=== PATIENT | female | born 1970 | race Caucasian/White ===

== ENCOUNTER 2018-05-10 18:54 | Emergency (ER) | payer BC ==
[2018-05-10] MEDS ORDERED: NS 1,000 ML IV ONE (19:17)
[2018-05-10] MEDS ORDERED: ONDANSETRON 4 MG/2 ML VIAL IVP ONE (19:17)
--- NOTE | 2018-05-10 19:20 | EDPHY ---
H & P Stated Complaint: Sudden sharp RLQ pain x2H, N/V s bleeding, denies constipation. - Personal History LMP (Females 10-55): Now Current Tetanus/Diphtheria Vaccine: Unsure - Medical/Surgical History Hx Asthma: No Hx Chronic Respiratory Disease: No Hx Diabetes: No Hx Cardiac Disease: No Hx Renal Disease: No Hx Cirrhosis: No Hx Alcoholism: No Hx HIV/AIDS: No Hx Splenectomy or Spleen Trauma: No Other PMH: sleep apnea, - Social History Smoking Status: Never smoked Alcohol Use: Sober Drug Use: None Time Seen by Provider: 05/10/18 19:06 HPI/ROS: CHIEF COMPLAINT: Abdominal pain HISTORY OF PRESENT ILLNESS: 47-year-old female presents with abdominal pain. Onset of periumbilical abdominal pain 2 hr ago. The pain waxes and wanes and is associated with nausea and vomiting. Currently menstruating, heavier period than usual. The pain is not localized to one side. No fever or diarrhea. No prior similar symptoms. REVIEW OF SYSTEMS: complete 10 point ROS reviewed and is negative except for the noted elements in the HPI (Ramila Mcclain) - Social History Additional Social History: (Ramila Mcclain) - Physical Exam Exam: General Appearance: Alert, pleasant Eyes: Pupils equal and round, no conjunctival pallor ENT, Mouth: Mucous membranes moist Neck: Normal inspection Respiratory: Lungs are clear to auscultation Cardiovascular: Regular rate and rhythm Gastrointestinal: Abdomen is soft, right lower quadrant tenderness, no peritoneal signs Back: No CVA tenderness Neurological: A&O, nonfocal exam Skin: Warm and dry, no rash Extremities: Nontender, no pedal edema Psychiatric: Mood and affect normal (Ramila Mcclain) Constitutional: Initial Vital Signs Temperature (C) 36.4 C 05/10/18 19:01 Heart Rate 71 05/10/18 19:01 Respiratory Rate 18 05/10/18 19:01 Blood Pressure 143/76 H 05/10/18 19:01 O2 Sat (%) 93 05/10/18 19:01 O2 Delivery Mode Room Air O2 (L/minute) 2 Allergies/Adverse Reactions: No Known Allergies Allergy (Verified 05/10/18 19:00) Home Medications: Medication Instructions Recorded Ondansetron Odt [Zofran Odt 4 mg 4 mg PO Q4PRN PRN #10 tab 05/10/18 (*)] Medical Decision Making ED Course/Re-evaluation: I took over care of this patient at 8:00 p.m.. The patient is here for right lower quadrant abdominal pain and vomiting. CT scan of abdomen and pelvis contrast enhanced is pending as well as blood work and urinalysis. CT scan abdomen and pelvis with IV contrast: The appendix is well visualized and is normal. There is some mild thickening of the gallbladder wall but without any associated inflammatory changes. No gallstones are seen. Results discussed with staff radiologist Dr. Quiles. I have ordered liver function testing for additional evaluation. 8:15 p.m., the patient was re-evaluated. She is resting comfortably at this time, repeat abdominal exam she is soft, nontender on palpation at this time. Specifically she does not have any right upper quadrant tenderness on palpation and no Knight sign. Results of her CT scan discussed with her. We are going to get her up to the bathroom to provide us with a urine sample. Blood work is currently pending. 9:00 p.m., the patient was re-evaluated, resting comfortably at this time. I discussed the results of her blood work and urinalysis with her and her . Results of her CT scan was reviewed. She describes her pain as lower mid abdominal pain. She has not had any upper abdominal pain. She does not have any pain at this time. Repeat abdominal exam she is soft and nontender throughout on palpation. She feels comfortable going home at this time and I feel she is safe for discharge. She will be prescribed Zofran for nausea and given a take-home pack of this medication. Follow-up and return to emergency department precautions reviewed with her. All of her questions were answered. She was discharged from the emergency department in good condition with her who is driving. (Shade Rodriguez) This patient presents with right lower quadrant tenderness and vomiting. Declines pain medication. IV normal saline 1 L and Zofran [address] scan of the abdomen pelvis ordered to evaluate for possible appendicitis. Toradol 30 mg IV and fentanyl 50 mcg IV given for pain control. The patient was signed over to Dr. Rodriguez at shift change. (Ramila Mcclain) Differential Diagnosis: Differential diagnosis includes though it is not limited to appendicitis, cholecystitis, diverticulitis, pyelonephritis, bowel perforation, small bowel obstruction. (Ramila Mcclain) - Data Points Laboratory Results: Laboratory Results 05/10/18 19:21 05/10/18 20:05 Medications Given: Discontinued Medications Fentanyl (Sublimaze) 50 mcg IVP EDNOW ONE Stop: 05/10/18 19:45 Last Admin: 05/10/18 19:54 Dose: 50 mcg Sodium Chloride (Ns) 1,000 mls @ 0 mls/hr IV EDNOW ONE; Wide Open PRN Reason: Protocol Stop: 05/10/18 19:18 Last Admin: 05/10/18 19:35 Dose: 1,000 mls Ketorolac Tromethamine (Toradol) 30 mg IVP EDNOW ONE Stop: 05/10/18 19:27 Last Admin: 05/10/18 19:35 Dose: 30 mg Ondansetron HCl (Zofran) 4 mg IVP EDNOW ONE Stop: 05/10/18 19:18 Last Admin: 05/10/18 19:35 Dose: 4 mg Ondansetron HCl (Zofran Odt 4 Mg Prepack#2) 1 btl TAKEHOME EDNOW ONE Stop: 05/10/18 21:07 Last Admin: 05/10/18 21:14 Dose: 1 btl Ondansetron HCl (Zofran Odt 4 Mg Prepack#2) 1 btl TAKEHOME EDNOW ONE Stop: 05/10/18 21:23 Last Admin: 05/10/18 21:23 Dose: 1 btl Point of Care Test Results: Chemistry 05/10/18 19:29 POC Sodium 142 mEq/L mEq/L (135-145) POC Potassium 3.8 mEq/L mEq/L (3.3-5.0) POC Chloride 104 mEq/L mEq/L (97-110) POC BUN 18 mg/dL mg/dL (7-23) POC Creatinine 0.9 mg/dL mg/dL (0.6-1.0) POC Glucose 117 mg/dL H mg/dL (70-100) ISTAT H&H 05/10/18 19:29 POC Hgb 14.3 gm/dL gm/dL (12.6-16.3) POC Hct 42 % % (38-47) Departure - Departure Disposition: Home, Routine, Self-Care Clinical Impression: Abdominal pain Condition: Good Instructions: Ondansetron (By mouth), Acute Abdominal Pain (ED) Additional Instructions: Read and follow provided instructions. Follow-up with your primary care physician in 2-3 days as discussed. The CT scan of your abdomen and pelvis did show uterine fibroids. This can be further evaluated by your r OBGYN or your primary care physician. Take medication as prescribed for nausea. Ibuprofen dosin mg every 6 hours with meals for the next 3 days only. Take only as needed for pain. Return to the emergency department for worsening pain, blood in your stool, fever, vomiting and inability to keep fluids down or other serious concerns. Referrals: Rebeca Vaca MD [Primary Care Provider] - As per Instructions Prescriptions: Ondansetron Odt [Zofran Odt 4 mg (*)] 4 mg PO Q4PRN PRN #10 tab PRN Reason: For Nausea & Vomiting
[2018-05-10] MEDS ORDERED: IOPAMIDOL (ISOVUE-300) 100 ML BTL ONE (19:22)
[2018-05-10] MEDS ORDERED: KETOROLAC 15 MG/1 ML SDV IVP ONE (19:26)
[2018-05-10] MEDS ORDERED: fentaNYL 100 MCG/2 ML INJ ONE (19:38)
[2018-05-10] MEDS ORDERED: fentaNYL 100 MCG/2 ML INJ IVP ONE (19:44)
[2018-05-10 20:05] LABS: PLATELET COUNT 300 10^3/uL (150-400)
[2018-05-10] MEDS ORDERED: ONDANSETRON 4MG PREPACK#2 BTL TAKEHOME ONE ×3 (21:06→21:22)
[2018-05-10 21:26] VITALS: BP 115/70
== END 2018-05-10 21:27 | disposition home or self-care (01) ==
LOC: MERGE 18:54
DX: R10.31 Right lower quadrant pain (principal); E86.9 Volume depletion, unspecified
CPT/HCPCS: 82435-PO; 82565-PO; 82947-PO; 84132-PO; 84295-PO; 84520-PO; 85014-PO; 96374; J1885; J2405; J3010; Q9967